=== PATIENT | male | born 1975 | race Caucasian/White ===

== ENCOUNTER 2021-05-06 00:06 | Emergency (ER) | payer BC, OTHER ==
[2021-05-06 00:40] VITALS: BP 164/95; PULSE 82; TEMP 97.2; BMI 40.0
[2021-05-06] MEDS ORDERED: CYCLOBENZAPRINE HCL 5 MG TABLET PO ONE (00:44)
[2021-05-06] MEDS ORDERED: LIDOCAINE 5% TOPICAL PATCH TP ONE (00:44)
[2021-05-06] MEDS ORDERED: KETOROLAC TROMETHAMINE 30 MG/1 ML VIAL IM ONE (00:44)
[2021-05-06] MEDS ORDERED: CYCLOBENZAPRINE HCL 10 MG TABLET (FP) ONE (00:48)
[2021-05-06] MEDS ORDERED: LIDOCAINE 5% TOPICAL PATCH ONE (00:49)
[2021-05-06] MEDS ORDERED: KETOROLAC TROMETHAMINE 30 MG/1 ML VIAL ONE (00:49)
[2021-05-06] MEDS ORDERED: ONDANSETRON *ODT* 4 MG TABLET SL ONE (01:32)
[2021-05-06] MEDS ORDERED: ONDANSETRON *ODT* 4 MG TABLET ONE (01:35)
[2021-05-06] MEDS ORDERED: LIDOCAINE PATCH REMOVAL MC SCH (22:00)
== END 2021-05-06 02:01 | disposition home or self-care (01) ==
LOC: JER 00:06
PROC: 3E0233Z Introduction of Anti-inflammatory into Muscle, Percutaneous Approach (ICD-10-PCS; principal; 2021-05-06)
DX: M54.50 Low back pain, unspecified (principal); X50.0XXA Overexertion from strenuous movement or load, initial encounter
CPT/HCPCS: 99284-25; Q0162